=== PATIENT | male | born 1995 | race Caucasian/White ===

== ENCOUNTER 2016-08-02 20:40 | Emergency (ER) | payer BC ==
[~2016-08-02] VITALS: Ht 190.5 cm; Wt 68.2 kg
[~2016-08-02 20:40] MED LIST: ACETAMINOPHEN W1 TA6 PO; PENICILLIN V250 MG PO; VENTOLIN0.09 MG IH; XOPENEX 1.1.25 MG/3 IH
[2016-08-02 20:55] VITALS: BP 127/82; TEMP 99.1
[2016-08-02 21:45] LABS: BASO # 0.1 (0.0-0.2); BASO % 0.4 % (0.0-2.0); EOS % 0.2 % (0-4.0); GRAN # 9.1 (1.4-6.5); GRAN % 77.5 % (42.2-75.2); HEMATOCRIT 49.4 % (36.0-47.0); HEMOGLOBIN 16.9 g/dl (12.5-16.1); LYMPH # 1.8 (1.2-3.4); LYMPH % 15.2 % (20.0-51.0); MEAN CELL VOLUME 92 fl (80.0-95.0); MEAN CORPUSCULAR HEMOGLOBIN 31 pg (26.0-32.0); MEAN CORPUSCULAR HGB CONC 34 g/dl (33.0-37.0); MEAN PLATELET VOLUME 9.6 fl (7.4-10.4); MONO # 0.8 (0.1-0.6); MONO % 6.4 % (1.7-9.3); PLATELET COUNT 214 K/mm3 (130-400); RED BLOOD COUNT 5.38 M/mm3 (4.20-5.60); REDCELL DISTRIBUTION WIDTH-CV 13.2 % (11.5-14.5); WHITE BLOOD COUNT 11.7 K/mm3 (4.8-10.8)
[2016-08-02 21:57] LABS: AMPHETAMINE URINE NEGATIVE; BARBITURATES URINE NEGATIVE; BENZODIAZEPINES URINE POSITIVE; BUPRENORPHINE URINE NEGATIVE; METHADONE URINE NEGATIVE; OPIATES URINE NEGATIVE; OXYCODONE URINE NEGATIVE; PHENCYCLIDINE URINE NEGATIVE; PROPOXYPHENE URINE NEGATIVE; THC CANNABINOIDS URINE POSITIVE
[2016-08-02 21:58] LABS: ADJUSTED CALCIUM 8.6 mg/dL (8.4-10.2); ALANINE AMINOTRANSFERASE 16 U/L (21-72); ALBUMIN 4.5 gm/dL (3.5-5.0); ALKALINE PHOSPHATASE 62 U/L (50-136); ANION GAP 15 mmol/L (7-16); BILIRUBIN,TOTAL 0.8 mg/dL (0.0-1.0); BLOOD UREA NITROGEN 13 mg/dL (9-20); CARBON DIOXIDE 24 mmol/L (22-30); CHLORIDE 103 mmol/L (98-107); GLUCOSE 97 mg/dL (74-106); POTASSIUM 3.5 mmol/L (3.4-5.0); SODIUM 142 mmol/L (137-145); TOTAL PROTEIN 7.3 gm/dL (6.4-8.2)
[2016-08-02 23:45] VITALS: PULSE 80
== END 2016-08-02 23:45 | disposition home or self-care (01) ==
LOC: COL.ER 20:40
PROVIDERS: Family Medicine
DX: S50.812A Abrasion of left forearm, initial encounter (principal); F32.9 Major depressive disorder, single episode, unspecified; F41.9 Anxiety disorder, unspecified; Z23 Encounter for immunization; Z81.8 Family history of other mental and behavioral disorders; X78.8XXA Intentional self-harm by other sharp object, initial encounter

== ENCOUNTER 2017-06-18 16:11 | Emergency (ER) | payer BC ==
[~2017-06-18] VITALS: Ht 193 cm; Wt 70.9 kg
[2017-06-18 16:31] LABS: BASO % 0.4 % (0.0-2.0); EOS # 0.1 (0.0-0.7); EOS % 0.6 % (0-4.0); GRAN # 7.3 (1.4-6.5); GRAN % 67.6 % (42.2-75.2); HEMATOCRIT 47.8 % (42.0-52.0); HEMOGLOBIN 16.5 g/dl (13.5-18.0); LYMPH # 2.8 (1.2-3.4); LYMPH % 26.2 % (20.0-51.0); MEAN CELL VOLUME 91 fl (80.0-100.0); MEAN CORPUSCULAR HEMOGLOBIN 31 pg (27.0-31.0); MEAN CORPUSCULAR HGB CONC 35 g/dl (33.0-37.0); MEAN PLATELET VOLUME 9.4 fl (7.4-10.4); MONO # 0.5 (0.1-0.6); MONO % 4.9 % (1.7-9.3); PLATELET COUNT 211 K/mm3 (130-400); RED BLOOD COUNT 5.25 M/mm3 (4.20-5.60)
[2017-06-18 16:47] LABS: ALBUMIN 4.2 gm/dL (3.5-5.0); BILIRUBIN,TOTAL 0.3 mg/dL (0.0-1.0); CALCIUM 8.7 mg/dL (8.4-10.2); CREATININE, serum 0.88 mg/dL (0.66-1.25); TOTAL PROTEIN 7.5 gm/dL (6.4-8.2)
[2017-06-18 17:49] VITALS: BP 129/88; PULSE 72
== END 2017-06-18 17:25 | disposition home or self-care (01) ==
LOC: COL.ER 16:11
PROVIDERS: Family Medicine
DX: F10.129 Alcohol abuse with intoxication, unspecified (principal); Y90.7 Blood alcohol level of 200-239 mg/100 ml
CPT/HCPCS: J7030

== ENCOUNTER 2020-10-16 20:57 | Emergency (ER) | payer OTHER, BC ==
[~2020-10-16] VITALS: Ht 190.5 cm; Wt 63.6 kg
[2020-10-17] MEDS ORDERED: MOTRIN 800800 MG/TAB PO (00:12)
[2020-10-17 00:18] VITALS: BP 126/87; PULSE 96; TEMP 96.8
== END 2020-10-17 00:24 | disposition other institution (70) ==
LOC: COL.ER 20:57
DX: S09.90XA Unspecified injury of head, initial encounter (principal); S00.81XA Abrasion of other part of head, initial encounter; S40.812A Abrasion of left upper arm, initial encounter; V49.9XXA Car occupant (driver) (passenger) injured in unspecified traffic accident, initial encounter
CPT/HCPCS: J2270

== ENCOUNTER 2021-02-25 11:23 | Emergency (ER) | payer BC ==
[~2021-02-25] VITALS: Ht 190.5 cm; Wt 70.5 kg
[~2021-02-25 11:23] MED LIST changes: +MOTRIN 800800 MG/TAB PO
[2021-02-25 11:32] VITALS: TEMP 97.6
[2021-02-25 12:31] LABS: BASO # 0.1 K/mm3 (0.0-0.2); BASO % 0.5 % (0.0-2.0); EOS # 0.1 K/mm3 (0.0-0.7); EOS % 0.9 % (0.0-4.0); GRAN # 9.4 K/mm3 (1.4-6.5); GRAN % 71.7 % (42.2-75.2); HEMATOCRIT 40.1 % (42.0-52.0); HEMOGLOBIN 14.1 g/dl (13.5-18.0); LYMPH # 2.6 K/mm3 (1.2-3.4); MEAN CELL VOLUME 89 fl (80.0-100.0); MEAN CORPUSCULAR HEMOGLOBIN 31 pg (27-31); MEAN CORPUSCULAR HGB CONC 35 g/dl (33.0-37.0); MEAN PLATELET VOLUME 9.3 fl (7.4-10.4); MONO # 0.9 K/mm3 (0.1-0.6); MONO % 6.5 % (1.7-9.3); PLATELET COUNT 273 K/mm3 (130-400); REDCELL DISTRIBUTION WIDTH-CV 12.9 % (11.5-14.5)
[2021-02-25 12:48] LABS: ALBUMIN 3.6 gm/dL (3.5-5.0); BILIRUBIN,TOTAL 0.5 mg/dL (0.2-1.2); CALCIUM 8.8 mg/dL (8.4-10.2); CREATININE, serum 0.85 mg/dL (0.72-1.25); POTASSIUM 4.1 mmol/L (3.5-4.5); TOTAL PROTEIN 6.1 gm/dL (6.2-8.1)
[2021-02-25 12:53] LABS: INR 1.1 (0.8-3.0); PROTHROMBIN TIME 11.8 SECONDS (9.7-12.8)
[2021-02-25 12:55] LABS: COLLECTION METHOD CLEAN CATCH
[2021-02-25 13:00] LABS: PH 8 (5-8); SQUAMOUS EPITHELIAL None Seen /hpf (0-10); URINE APPEARANCE Clear (CLEAR/HAZY); URINE BACTERIA None Seen (NONE SEEN); URINE BILIRUBIN Negative (NEGATIVE); URINE BLOOD Negative (NEGATIVE); URINE COLOR Straw (YELLOW); URINE GLUCOSE Negative (NEGATIVE); URINE KETONE Negative (NEGATIVE); URINE LEUKOCYTE ESTERASE Negative (NEGATIVE); URINE NITRATE Negative (NEGATIVE); URINE PROTEIN(semi-quant) Negative (NEGATIVE); URINE RBC 0-2 /hpf (0-2); URINE UROBILINOGEN Negative (NEGATIVE)
[2021-02-25 14:10] VITALS: BP 120/87; PULSE 80
== END 2021-02-25 14:08 | disposition home or self-care (01) ==
LOC: COL.ER 11:23
PROVIDERS: Physician Assistant
DX: S06.0X9A Concussion with loss of consciousness of unspecified duration, initial encounter (principal); R10.9 Unspecified abdominal pain; R19.5 Other fecal abnormalities; Y04.0XXA Assault by unarmed brawl or fight, initial encounter; Y92.838 Other recreation area as the place of occurrence of the external cause
CPT/HCPCS: J7030; Q9967